=== PATIENT | male | born 2005 | race Two or more races ===

== ENCOUNTER 2024-08-02 13:58 | Emergency (ER) | payer BC, SELFPAY ==
[2024-08-02 14:20] VITALS: BP 136/79; PULSE 76; RESP 20; TEMP 37; O2SAT 98; BMI 37.9
--- NOTE | 2024-08-02 14:22 | ED_ITS ---
HPI - Ear Problem General Chief complaint: Ear Problems Stated complaint: ear irritation Time Seen by Provider: 08/02/24 14:33 Source: patient Mode of arrival: ambulatory Limitations: no limitations History of Present Illness ED Provider: Yara Tyson PA-C HPI Narrative: This is a 19-year-old male who presents emergency department with concerns for right ear pain since today. Patient reports reports that he has had increased pain and pressure over the last 4 hours. He does report decreased hearing. No ear drainage. No history of ear infections in the past. No recent swimming. No fevers, chills. He does report slight nasal congestion. 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 Denies taking any medications to treat his current pain. No other complaints or concerns at this time. MD Complaint: ear pain and decreased hearing Location: right ear Severity: moderate Relieving factors: nothing Exacerbating factors: nothing Discharge from ear: no Associated symptoms ear: decreased hearing Treatment prior to arrival: none Related Data Previous Rx's ?Medication ?Instructions ?Recorded acetaminophen 500 mg tablet 1,000 mg (2 x 500 mg) PO Q8H PRN 08/02/24 (Tylenol Extra Strength) pain #30 tabs amoxicillin 875 mg tablet 875 mg PO BID 10 days #20 tabs 08/02/24 ibuprofen 600 mg tablet 600 mg PO Q6H PRN pain #30 tabs 08/02/24 ofloxacin 0.3 % ear drops 10 drp otic (ears) DAILY 7 days 08/02/24 #10 mL Allergies Allergy/AdvReac Type Severity Reaction Status Date / Time No Known Allergies Allergy Verified 08/02/24 14:21 Review of Systems Review of Systems: Yes all other systems are reviewed and are negative Constitutional: Constitutional: Reports as per [facility] [place] Past Medical History Attestation statement: The following information was validated with the patient. Social History Social History Advance Directives: No Advance Directives Information Provided: Yes Physical Exam Vital Signs: Vital Signs: Last Vital Signs Temp 98.6 F 08/02/24 14:45 Pulse 76 08/02/24 14:45 Resp 20 08/02/24 14:45 BP 136/79 08/02/24 14:45 Pulse Ox 98 08/02/24 14:45 O2 Del Method Room Air 08/02/24 14:45 BMI result Body Mass Index 37.9 Const: General: cooperative, comfortable and no acute distress Orientation/consciousness: patient oriented x3 Limitations: no limitations HEENT: Other: Right TM is erythematous and bulging, auditory canal is erythematous. Pain with tragal manipulation. No mastoid tenderness or fluctuance. Head: Yes normal to inspection, Yes normocephalic and Yes atraumatic Ears: hearing grossly normal bilaterally General nose exam: Normal external nose present Face and sinus: Yes normal facial exam Mouth: Normal oral and palatal mucosa present, oropharynx normal and moist mucous membranes Throat: Yes posterior oropharynx normal Eyes: General: appearance normal, both eyes and all related structures Eyelids: Yes eyelids normal Conjunctivae: conjunctivae normal Sclerae: sclerae normal Pupils: Equal, round and reactive pupils present EOM: EOMs intact bilaterally Neck: Neck: Yes normal visual inspection, Yes full ROM and Yes no lymphadenopathy Lymphatic: no lymphadenopathy noted Chest: Chest palpation & inspection: normal inspection of the chest Resp: Effort & Inspection: normal respiratory effort and able to speak in complete sentences Auscultation: clear to auscultation bilaterally, no crackles, no rales, no rhonchi and no wheezes Cardio: Rate: regular rate Rhythm: regular rhythm Heart sounds: S1 normal heart sound present and S2 normal heart sound present GI: Inspection: Yes normal to inspection Skin: General skin exam: no rashes or lesions noted Trauma: no lacerations or abrasions Wounds: no wounds Neuro: General: patient oriented x3 and moves all extremities Cranial nerves: Yes Equal, round and reactive pupils present Extrem: General: Yes normal to inspection Right upper extremity: normal to inspection Left upper extremity: normal to inspection Right lower extremity: normal to inspection Left lower extremity: normal to inspection Medications Administered Discontinued Medications Generic Name Dose Route Start Last Admin Trade Name Freq PRN Reason Stop Dose Admin Acetaminophen 975 mg 08/02/24 14:25 08/02/24 14:30 Acetaminophen 325 Mg Tablet PO 08/02/24 14:26 975 mg ONCE ONE Administration Medical Decision Making Medical Decision Making [facility] Narrative: This is a 19-year-old male who presents emergency department for evaluation of right ear pain which started several hours ago. On arrival, vital signs within normal limits. He is speaking full sentences under no acute distress. Right ear TM is erythematous and bulging with erythematous auditory canal. Consistent with otitis media and otitis externa. Will treat with oral and topical antibiotics. Given dose of Tylenol in department today. Given strict return precautions. He understands and agrees with plan. Patient stable for discharge. Differential Diagnosis Differential Diagnoses: The differential diagnosis associated with the presentation includes Otitis media, otitis externa, cerumen impaction, TM perforation, mastoiditis- unlikely Discharge Plan Discharge Clinical Impression: Otitis media, Otitis externa Patient Disposition: Home, Self-Care Instructions: How to Use Ear Drops (ED), Ear Infection (ED) Additional Instructions: You were seen in the emergency department due to ear pain. You have a middle ear infection and external ear infection. Please take prescribed antibiotic as directed. Also use the antibiotic ear drops as directed. Finish the entire course even if your symptoms improve. Alternate between ibuprofen and or Tylenol as needed for pain and symptoms. Do not put anything in your ears other than the ear drops, do not use Q-tips, and no swimming until your symptoms have resolved in you have completed the full course of antibiotics. If any new or worsening symptoms occur including but not limited to worsening pain, drainage from the ear, please seek emergent care Prescriptions: New amoxicillin 875 mg tablet 875 mg PO BID 10 Days Qty: 20 0RF ofloxacin 0.3 % drops 10 drp otic (ears) DAILY 7 Days Qty: 10 0RF ibuprofen 600 mg tablet 600 mg PO Q6H PRN (Reason: pain) Qty: 30 0RF acetaminophen [Tylenol Extra Strength] 500 mg tablet 1,000 mg PO Q8H PRN (Reason: pain) Qty: 30 0RF Interventions: ED Discharge Assessment Last Done: 08/02/24 14:45 Discharge Date/Time: 08/02/24 14:46 Print Language: Georgian
[2024-08-02] MEDS: Acetaminophen 325 MG TABLET 975 MG PO (14:30)
--- OUTSIDE RECORDS SUMMARY | 2024-08-02 14:41 | XMS_ITS | Clinical Summary ---
Author Organization [facility] Address [address] [place] [address] Care Team Providers Care Older Worker Specialist Name Role Phone Unknown, Soft Primary Care Provider Unavailabl e Medications baricitinib 4 mg Tab UUD 30 tablet 07/16/2023 Active Social History Tobacco Use Types Packs/Day Years Used Date Smoking Tobacco: Never Assessed Sex and Gender Information Value Date Recorded Sex Assigned at Not on file Legal Sex Male 12:59 PM EDT Gender Identity Not on file Sexual Orientation Not on file Plan of Treatment Health Maintenance Due Date Last Done Comments ANNUAL PREVENTATIVE VISIT 2004 MENINGOCOCCAL B VACCINE (1 of 2 - Standard) 2020 HEPATITIS C SCREENING 2021 COVID-19 IMMUNIZATION ( season) 2023 09/21/2020, 07/17/2020 INFLUENZA VACCINE (Season Ended) 2024 12/06/2019, 02/16/2019 DTAP/TDAP/TD VACCINES (6 - Tdap) 06/18/2026 06/18/2016, 06/14/2009, 01/15/2006, Additional history exists ZOSTER VACCINE (1 of 2) 2054 06/24/2010, 09/08 RSV IMMUNIZATION (1 - 1-dose 75+ series) 07/14/2079 HEPATITIS B VACCINES Completed 01/16/2005, 2004, 2004 PNEUMOCOCCAL VACCINE Aged Out 01/16/2005, 01/15/2005, 2004 No longer eligible based on patient's age to complete this topic HEPATITIS A VACCINES Completed 04/21/2007, 04/13/19 07 IPV VACCINES Completed 06/14/2009, 03/02, 01/16/2005, Additional history exists MMR VACCINES Completed 06/14/2009, 09/08/2005 VARICELLA VACCINES Completed 06/24/2010, 09/08/2005 MENINGOCOCCAL ACYW VACCINE Aged Out 05/27/2016 N o longer eligible based on patient's age to complete this topic HPV VACCINE Completed 11/25/2017, 10/31/2016 HIB VACCINES Aged Out No longer eligi ble based on patient's age to complete this topic ROTAVIRUS VACCINES Aged Out No longer eligible based on patient's age to complete this topic Insurance [employer] OOS Care Teams Older Worker Specialist Relationship Specialty Start Date End Date Unknown, Soft [id number] PCP - General 06/20/23
--- OUTSIDE RECORDS SUMMARY | 2024-08-02 14:41 | XMS_ITS | Data Portability ---
Author Organization [facility] [place] Address [address] [place] [address] Care Team Providers Care Market Research Assistant Name Role Phone VINCENT YUSUF Frit Mixer [phone] Assessment No assessment recorded. Plan of Treatment Reminders Order Date Submit Date Provider Last Modified By Organization Details Last Modified Time Details Appointments None recorded. Lab None recorded. Referral physical therapist referral 2024 025 [email or web address] Not available 10:04:42 physical therapist referral 2024 025 [email or web address] Not available 10:02:20 Procedures None recorded. Surgeries None recorded. Imaging None recorded. Medication Orders None recorded. Patient TargetsNo targets recorded. Patient InstructionsNo instructions recorded. Reason for Referral Physical Therapist Referral for Low back strain low back pain radiating left leg; h/o L5 compression fx and L4-5 disc bulge/interspinous lig strain home exercise program Referring Physician: Jessica Hutchinson, Orthopedic Surgery, Encounter Date: 05/11/2024 Physical Therapist Referral for Low back pain low back pain; work on stretching and strengthening program home exercise program Referring Physician: Jessica Hutchinson, Orthopedic Surgery, Encounter Date: 07/06/2024 Results Created Date Observation Date Name Description Value Unit Range Abnormal Flag Note LastModifiedBy Organization Detail LastModifiedTime 05/11/19 25 01/02/2024 MRI, lumba r spine , w/o contr ast No observ ation record ed. [email or web address] Not Available 2024 09:38:52 Result Notes None recorded. Problems Name Problem SNOMED Code Status Onset Date Resolution Date Notes Provider Name and Address Organization Details Recorded Time Low back strain [id number] Active 025 Jessica Hutchinson PA-C [address] [place], [address] , [facility] 05/11/2024 09:58:23 Problem Notes None recorded. Procedures Surgical History None recorded. Imaging Results Imaging Date Name Status LastModified by Organiz ation Details LastModified Time 01/02/2024 MRI, lumbar spine, w/o contrast completed [email or web address] Information not available 05/11/2024 09:38:52 Procedure Notes None recorded. Medical Equipment None Reported. Allergies No known drug allergies Medications Name Sig Start Date Stop Date Status Note LastModified by Organization Details LastModified Time acetaminophe n 325 mg tablet 975 MG (3 X 325 MG) ORALLY EVERY 8 HOURS FOR 10 DAYS active Not Available Not Available No t Available ibuprofen 800 mg tablet TAKE 1 TABLET BY MOUTH 3 TIMES DAILY FOR 10 DAYS 05/11 completed Not Available Not Available Not Available famotidine 40 mg tablet 40 MG ORALLY DAILY FOR 10 DAYS active Not Available Not Available No t Available methylphenid ate ER 54 mg tablet,exten ded release 24 hr TAKE 1 TABLET BY MOUTH EVERY DAY IN THE MORNING active Not Available Not Available No t Available amoxicillin 875 mg-potassium clavulanate 125 mg tablet 07/06 completed Not Available Not Available Not Available cholecalcife rol (vitamin D3) 1,250 mcg (50,000 unit) capsule active Not Available Not Available Not Available Vitals Date Recorded Body height Body mass index (BMI) Body mass index (BMI) [Percentile] Per age and sex Body weight Pain severity - 0-10 verbal numeric rating [Score] - Reported Provider Name and Address Organization Details Last Updated DateTime 05/11/2024 185.42 cm 36.9 kg/m2 98.21 % 515238. 86 g 3 Jessica Hutchinson PA-C [address] [place], [address] [place] [address] [facility] 09:26:05 Date Recorded Body height Body mass index (BMI) Body mass index (BMI) [Percentile] Per age and sex Body weight Provider Name and Address Organization Details Last Updated DateTime 07/06/2024 185.42 cm 36.9 kg/m2 98.14 % 611811.8 6 g Manny Rob [facility] 07/06/2024 09:47:31 Date Recorded Pain severity - 0-10 verbal numeric rating [Score] - Reported Provider Name and Address Organization Details Last Updated DateTime 07/06/2024 2 Jessica Hutchinson PA-C [address] [place] [address], , [facility] 07/06/2024 09:53:05 Social History Question Answer Notes LastModified by Organizat ion Details LastModified Time Tobacco Smoking Status Never Smoker Jessica Hutchinson PA-C [address] [place] [address], , [facility] 05/11/2024 09:25:24 What Is Your Level Of Alcohol Consumption? None Information not available 05/11/2024 Do You Use Any Illicit Or Recreational Drugs? No Information not available 05/11/2024 Has Tobacco Cessation Counseling Been Provided? No Information not available 05/11/2024 Do You Or Have You Ever Used Any Other Forms Of Tobacco Or Nicotine? No Information not available 05/11/2024 Sex: Unknown Functional Status None recorded. Mental Status None recorded. Family History Relationship Description Onset Age of this Age Resolved Age Notes LastModified by Organization Details LastModified Time Father No current problems or disability Not available 05/11 09:25:10 Mother No current problems or disability Not available 05/11 09:25:10 Medical History Condition Response Coronary Artery Disease N Gout N Dyslipidemia N Artificial Joints N Thyroid Problems N Lung Disease N Depression N Pacemaker N Anemia N Back Pain Y Hearing Impairment N Anesthesia Complications N Heart Attack ([place]) N Headaches/Migraines N Deep Vein Thrombosis N Anxiety Disorder N Diabetes N Bleeding Disorder N Arthritis N Seizures/Epilepsy N Cardiac Stent N Blood Clot N Tuberculosis N AIDS/HIV N Inflammatory Bowel Disease N Acid Reflux (GERD) N Cancer N Stroke N Substance Abuse N Peripheral Vascular Disease N Asthma/COPD N Wears Glasses/Contacts N Hepatitis N Heart Disease N Organ Transplant N Rheumatoid Arthritis N Pulmonary Embolism N Fibromyalgia N Hypertension N Stomach Ulcer N Osteoporosis N Kidney Disease N Past Encounters Encounter ID Performer Location Encounter Start Date Encounter Closed Date Diagnosis/Indication Diagnosis SNOMED-CT Code Diagnosis ICD10 Code Diagnosis Note [id number] Jessica Hutchinson PA-C [place] [id number] 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 He felt pressure and pain through his low back. It has very slowly been improving since that time. On exam he has no strength or neurologic deficits. He brings with him a lumbar MRI done at [facility] on 01/02/24 which shows a minimally comminuted compressio n fracture of the right anterior aspect of the superior endplate of L5 with minimal surroundin g edema. There is no significan t central height loss. At L5-S1 there is a left eccentric disc protrusion without contact of the descending nerve roots or significan t central stenosis. L4-5 there is mild interspino us edema without widening of the interspino us space or disruption of the posterior ligamentou s complex. 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 He will follow up in 8 weeks time for a clinical check to assess for return to work and until then will work 2-3 times a week with PT. He is in agreement with the plan and welcome to reach out with any further questions or concerns. Total visit time was 20 minutes in length including face-to-fa ce and non-face-t o-face time. Low back strain [id number] 1 S39.012A [id number] Jessica Hutchinson PA-C [place] [id number] 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 He felt pressure and pain through his low back. It has very slowly been improving since that time. Since I last saw him he has not been participat ing in PT due to personal reasons. He is planning to start this soon. He otherwise is starting to feel better and will begin ramping up strengthen ing/stretc mendoza of his lower back, core and lower extremitie s. He will follow up with me on an as needed basis. He is in agreement with the plan and welcome to reach out with any further questions or concerns. Total visit time was 10 minutes in length including face-to-fa ce and non-face-t o-face time. Low back strain 47395655 1 S39.012A Health Concerns Section Related Observation LastModified by Organization Detai ls LastModified Time None Recorded Concern Status LastModified by Organization Details LastModified Time None Recorded Advance Directives Directive None Recorded Payers Encounter Date Sequence Insurance Name Policy Number Policy Vega Covered Member ID Vega Member ID Guarantor Name 05/11/2024 [employer]ERSON [employer] [facility] Moustafa 07/06/2024 [employer] [facility] Moustafa [facility] Moustafa Notes Date Note Type Note Provider Name and Address Organization Details Recorded Time 05/11/2024 text/html Romie is a pleasant 18 year old who presents today for the evaluation of his low back pain. 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 He states that he has an aching in his low back and a slight numbness in the posterior aspect of the left leg as the aching gets stronger in his back. Pain is typically a 4/10. He feels that the left leg has been numb and weak since the injury. He will get occasional pains in the foot on the left. Treatment ignacio he has tried ice/heat, over the counter analgesics and activity modification. He has not had any physical therapy, chiropractic treatment, acupuncture or imaging at this juncture. He has had no recent trauma or falls. No previous back surgery. Denies radiation of pain, numbness, tingling or weakness. Denies changes in bowel or bladder function. He brings with him a lumbar MRI done at [facility] on 01/02/24 which shows a minimally comminuted compression fracture of the right anterior aspect of the superior endplate of L5 with minimal surrounding edema. There is no significant central height loss. At L5-S1 there is a left eccentric disc protrusion without contact of the descending nerve roots or significant central stenosis. L4-5 there is mild interspinous edema without widening of the interspinous space or disruption of the posterior ligamentous complex. Jessica Hutchinson PA-C [address] [place], [address], [facility] 05/11/2024 13:04:16 07/06/2024 text/html Basem comes in today to follow up regarding his low back and recent physical therapy. 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 Pain today is 2/10. The pain has been improving since I last saw him. Treatment ignacio he has tried ice/heat, over the counter analgesics and activity modification. He has not yet started working with PT due to personal reasons. He has had no recent trauma or falls. No previous back surgery. Denies radiation of pain, numbness, tingling or weakness. Denies changes in bowel or bladder function. By way of review: lumbar MRI done at [facility] on 01/02/24 which shows a minimally comminuted compression fracture of the right anterior aspect of the superior endplate of L5 with minimal surrounding edema. There is no significant central height loss. At L5-S1 there is a left eccentric disc protrusion without contact of the descending nerve roots or significant central stenosis. L4-5 there is mild interspinous edema without widening of the interspinous space or disruption of the posterior ligamentous complex. Jessica Hutchinson PA-C [address] [place], [address], [facility] 07/06/2024 10:35:50
--- OUTSIDE RECORDS SUMMARY | 2024-08-02 14:41 | XMS_ITS | Patient Health Record ---
Author Organization [facility] Address [address] [place] [address] Care Team Providers Care Real Estate Services Coordinator Name Role Phone José Miguel [place], Demario Primary Care Provider Unavaila ble Taylor Ambrocio Unavailable [phone] Taylor Ambrocio Unavailable Unavailable Allergies No Known Allergies Reason For Referral No Information Plan Of Treatment Pending Test Test Name Order Date TSH- 3RD GENERATION 06/20/2023 ACUTE HEP PANEL 06/20/2023 COMPREHENSIVE METABOLIC PANEL 06/20/2023 Quantiferon TB Gold PLUS 06/20/2023 CBC with Reflex to Manual Diff 4 Insurance Providers Payer Name Payer Address Payer Phone Subscriber Number Group Number Insured Name Patient Relationship to Insured Coverage Start Date Coverage End Date [address] [id number] SALLY PORRAS Self - patient is the insured Medical (General) History Medical History History ICD Code Alopecia areata
--- OUTSIDE RECORDS SUMMARY | 2024-08-02 14:41 | XMS_ITS ---
Author Organization [facility] Address [address] [place] [address] Care Team Providers Care Equalizing Saw Operator Name Role Phone José Miguel [place], Demario Primary Care Provider Unavaila Taylor Gagnon Unavailable [phone] Taylor Ambrocio Unavailable REASON FOR VISIT Olumiant PAP approved Encounters Encounter Location Date Provider Diagnosis [facility] [address] [facility] [address] [place] [address] 06/20/2023 Taylor Ambrocio Plan Of Treatment No Information Progress Notes * CHIQUITA LAURENMDOB: 5 (18 yo M)Acc No.[id number]:06/20/2023 Patient:?SALLY PORRAS :2005???Age:17 Y???Sex:Male Address:[address] [place] [address], [address], [place], [address] * true * Date:? Generated for Printi ng/Fafransicog/eTransmitting on:?08/02/2024 02:41 PM EDT
--- OUTSIDE RECORDS SUMMARY | 2024-08-02 14:41 | XMS_ITS | Clinical Summary ---
Author Organization [facility] Address [address] [place] [address] Care Team Providers Care [employer] Name Role Phone Sakina Looney MD Primary Care Provider [phone] Allergies No known active allergies Medications * This document contains information received from the source organization and may not represent a complete record from that organization. Allergy Relief, fexofenadine, 180 mg tablet 01/03/2021 Active Social History Tobacco Use Types Packs/Day Years Used Date Smoking Tobacco: Never Assessed Sex and Gender Information Value Date Recorded Sex Assigned at Male 01/02/2024 9:44 PM EDT Legal Sex Male 5:54 PM EST Gender Identity Male 01/02/2024 9:44 PM EDT Sexual Orientation Straight 01/02/2024 9: 44 PM EDT Last Filed Vital Signs Vital Sign Reading Time Taken Comments Blood Pressure 132/81 01/02/2024 9:49 PM EDT Pulse 84 01/02/2024 9:49 PM EDT Temperature 36.6 ??C (97.9 ??F) 01/02/2024 9:49 PM ED T Respiratory Rate 16 01/02/2024 9:49 PM EDT Oxygen Saturation 100% 01/02/2024 9:49 PM EDT Inhaled Oxygen Concentration - - Weight 120 kg (265 lb) 01/02/2024 9:49 PM EDT Height 182.9 cm (6') 01/02/2024 9:49 PM EDT Body Mass Index 35.94 01/02/2024 9:49 PM EDT Plan of Treatment Health Maintenance Due Date Last Done Comments Hepatitis C Screening 2022 Periodic Health Exam 2022 Tetanus Diphtheria and Pertussis Vaccines (TD and TDaP) (1 - Tdap) 07/14/2023 Influenza (Seasonal) 10/31/2023 02/19/2023, 02/05/2022, 01/02/2022, Additional history exists CoVid-19 Vaccine ( - 2023- season) 2023 05/09/2021, 09/21/2020, 07/17/2020 Pneumococcal Vaccine: Pediatrics (0 to 5 Years) and At-Risk Patients (6 to 64 Years) Aged Out 01/16/2005, 01/15/2005, 2004 No longer eligible based on patient's age to complete this topic MMR Vaccines Completed 06/14/2009, 09/08/2005 Varicella Vaccines Completed 06/24/2010, 09/08/2005 HPV Vaccines Completed 11/25/2017, 10/31/2016 Meningococcal Vaccine Completed 02/05/2022, 017 HIB Vaccines Aged Out No longer eligi ble based on patient's age to complete this topic Insurance [employer] Care Teams [employer] Relationship Specialty Start Date End Date Sakina Looney MD [facility] Primary Care, [place] [phone] PCP - General Internal Medicine 01/02/24
--- OUTSIDE RECORDS SUMMARY | 2024-08-02 14:42 | XMS_ITS | Clinical Summary ---
Author Organization [facility] Address [address] [place] [address] [address] Care Team Providers Care Gettering Filament Machine Operator Name Role Phone Adrian Palomino Unavailable [phone] Poc, Non Atrius Pcp Or Primary Care Provider Catalina vailable Allergies No known active allergies Medications FLUTICASONE 50 MCG/ACTUATION NASAL SPRAY, SUSPIndications :Postnasal drip Apply 1-2 sprays to each nostril daily ; dispense OTC if lowest cost for patient 16 2 9 Active KETOCONAZOLE 2 % SHAMPOOIndicati ons:Seborrheic dermatitis of scalp Lather, wait 5 minutes, rinse. Use 2 to 3 times per week 120 11 0 Active Tacrolimus 0.1 % Ointment 0 Active methylphenidate HCl 36 mg tablet extended release 24hr SR 24 Hr 1 Active tretinoin 0.025 % Cream APPLY A PEA SIZED AMOUNT AT BEDTIME TO THE FACE AT BEDTIME TOLERATED 1 Active Active Problems Problem Noted Date Diagnosed Date Alopecia - right eye brow 11/27/2019 Resolved Problems Problem Noted Date Diagnosed Date Resolved Date Closed nondisplaced fracture of proximal phalanx of right little finger 08/13/2017 0 Immunizations Name Administration Dates Next Due COVID-19 (PFIZER) Vaccine, 30mcg/0.3mL, 12YRS+, Diluent Reconstituted, IM 09/21/2020,07/17/2020 DTP Vaccine 06/18/2016, 0,01/15/2006,01/16,2004 HPV9 Vaccine (Gardasil9) 11/25/2017,10/31/2016 Hep A Vaccine (Unspecified Formulation) 04/21/2007,04/13/2006 Hep B Vaccine (Unspecified Formulation) 01/16/2005,2004,2004 Influenza Vaccine, 6MOS+, Si ngle Dose, 0.5 mL (Flulaval/Fluzone) 12/06/2019,02/16/2019 MMR Vaccine 06/14/2009,09/08/2005 Meningococcal ACWY (Menactra ) Conjugate Vaccine 05/27/2016 Pneumococ/Conjugate (PCV13) 01/16/2005, 5,2004 Polio (Unspecified) 06/14/2009, 5,01/16/2005,11/14 Varicella Vaccine 06/24/2010,09/08/2005 Social History Tobacco Use Types Packs/Day Years Used Date Smoking Tobacco: Never Assessed Sex and Gender Information Value Date Recorded Sex Assigned at Not on file Legal Sex Male 1:38 PM EDT Gender Identity Not on file Sexual Orientation Not on file Obstetrics History Last Filed Vital Signs Vital Sign Reading Time Taken Comments Blood Pressure 110/74 11/27/2019 7:59 AM EDT Pulse 78 04/08/2019 12:24 PM EST Temperature 36.8 ??C (98.3 ??F) 04/08/2019 1 2:24 PM EST Respiratory Rate - - Oxygen Saturation 98% 04/08/2019 12: 24 PM EST Inhaled Oxygen Concentration - - Weight 88.9 kg (195 lb 15.8 oz) 11/27/2019 7:59 AM EDT Height 180.4 cm (5' 11.02 ) 11/27/2019 7:59 AM E DT Body Mass Index 27.32 11/27/2019 7:59 AM EDT Plan of Treatment Health Maintenance Due Date Last Done Comments OFFICE VISIT 2004 HEP B INITIAL SCREENING 2022 HEP C SCREENING 2022 HIV SCREENING 2022 PERIODIC HEALTH REVIEW 07/14/2023 COVID-19 Vaccine ( season) 2023 09/21/2020, 07/17/2020 FLU SEASONAL (#1) 12/01/2023 12/06/2019, 9 DTAP/TDAP/TD VACCINE (6 - Tdap) 06/18/2026 06/18/2016, 06/14/2009, 01/15/2006, Additional history exists HEPATITIS B VACCINE Completed 01/16/2005, 2004, 2004 PNEUMOCOCCAL VACCINE(S) Aged Out 01/17/20, 01/15/2005, 2004 No longer eligible based on patient's age to complete this topic HEPATITIS A VACCINE Completed 04/21/2007, 7 POLIO VACCINE Completed 06/14/2009, 03/02, 01/16/2005, Additional history exists MENINGOCOCCAL VACCINE (ACWY) Aged Out 05/27/2016 No longer eligible based on patient's age to complete this topic HPV VACCINE Completed 11/25/2017, 10/31/2016 HAEMOPHILUS INFLUENZA VACCINE Aged Out No longer eligible based on patient's age to complete this topic RSV Vaccine Infant//toddler Aged Out No longer eligible based on patient's age to complete this topic Insurance [employer]-OUTSIDE PCP Care Teams Gettering Filament Machine Operator Relationship Specialty Start Date End Date Adrian Palomino [facility] [address] [place] [address] PCP - Payer 11/22/20 Poc, Non Atrius Pcp Or PCP - General 11/29/20
--- OUTSIDE RECORDS SUMMARY | 2024-08-02 14:42 | XMS_ITS ---
Author Organization [facility] Address [address] [place] [address] Care Team Providers Care Front Office Help Name Role Phone José Miguel [place], Demario Primary Care Provider Unavaila Taylor Gagnon Unavailable [phone] Taylor Ambrocio Unavailable Unavailable REASON FOR VISIT Formulary needed Encounters Encounter Location Date Provider Diagnosis [facility] [address] [facility] [address] [place] [address] 07/19/2023 Taylor Ambrocio Plan Of Treatment No Information Progress Notes * LAUREN PORRASMDOB: 5 (18 yo M)Acc No.[id number]:07/19/2023 Patient:?SALLY PORRAS :2005???Age:18 Y???Sex:Male Address:[address] [place] [address], [address], [place], [address] * true * Date:? Generated for Printi ng/Fafransicog/eTransmitting on:?08/02/2024 02:41 PM EDT
--- OUTSIDE RECORDS SUMMARY | 2024-08-02 14:42 | XMS_ITS | Encounter Summary ---
Author Organization [facility] Address [address] [place] [address] Care Team Providers Care Chief Sustainability Officer Name Role Phone Sakina Looney MD Primary Care Provider [phone] Encounter Details Date Type Department Care Team (Late st Contact Info) Description 01/02/2024 Procedure [facility] [address] [place] [address] [phone] Social History Tobacco Use Types Packs/Day Years Used Date Smoking Tobacco: Never Assessed Sex and Gender Information Value Date Recorded Sex Assigned at Male 01/02/2024 9:44 PM EDT Legal Sex Male 5:54 PM EST Gender Identity Male 01/02/2024 9:44 PM EDT Sexual Orientation Straight 01/02/2024 9: 44 PM EDT documented as of this encounter Plan of Treatment Not on file documented as of this encounter Visit Diagnoses Not on filedocumented in this encounter Care Teams Chief Sustainability Officer Relationship Specialty Start Date End Date Sakina Looney MD [facility] Primary Care, [facility] [address] [place] [address] PCP - General Internal Medicine 01/02/24 documented as of this encounter
--- OUTSIDE RECORDS SUMMARY | 2024-08-02 14:42 | XMS_ITS | Clinical Summary ---
Author Organization [facility] Address [address] [place] [address] Care Team Providers Care Hot Plate Plywood Press Feeder Name Role Phone Unavailable Primary Care Provider Unavailabl e Social History Tobacco Use Types Packs/Day Years Used Date Smoking Tobacco: Never Assessed Sex and Gender Information Value Date Recorded Sex Assigned at Male 05/17/2023 1:24 AM EST Legal Sex Male 1:24 AM EST Gender Identity Male 05/17/2023 1:24 AM EST Sexual Orientation Not on file Plan of Treatment Health Maintenance Due Date Last Done Comments Blood Pressure 2004 Depression Screening 2008 Hepatitis C Screening 2022 DTaP,Tdap,and Td Vaccines (1 - Tdap) 07/14/2023 COVID-19 Vaccine (2023-2 5 season) 2023 Influenza Vaccine (Season Ended) 2024 Meningococcal Vaccines Aged Out No lo nger eligible based on patient's age to complete this topic Pneumococcal Vaccine: Pediat rics (0 to 5 Years) and At-Risk Patients (6 to 64 Years) Aged Out No longer eligible b ased on patient's age to complete this topic
[2024-08-02 14:45] VITALS: BP 136/79; PULSE 76; RESP 20; TEMP 37; O2SAT 98
== END 2024-08-02 14:46 | disposition home or self-care (01) ==
PROVIDERS: Emergency Provider Emergency Medicine
DX: H66.91 Otitis media, unspecified, right ear (principal); H60.91 Unspecified otitis externa, right ear; H92.01 Otalgia, right ear; R09.81 Nasal congestion
CPT/HCPCS: 99283